=== PATIENT | female | born 1950 | race Caucasian/White ===

== ENCOUNTER 2020-10-19 06:38 | Outpatient (CLI) | payer MEDICARE, SELFPAY ==
--- NOTE | ~2020-10-19 | MR_ITS ---
EXAMINATION: MR lumbar spine wo con DATE: 10/19/2020 07:29 INDICATION: Low back pain. TECHNIQUE: Magnetic resonance imaging (MRI) of the lumbar spine was performed without intravenous con trast. Sequences included sagittal T2-weighted FSE, sagittal T2-weighted FS FSE, sagittal T1-weighted FSE, and axial T2-weighted FSE. COMPARISON: None FINDINGS: Bone alignment is normal. Vertebral body heights and intervertebral disc heights are normal . The distal spinal cord signal intensity is normal. The conus medullaris is at L1. The following dis c levels are specifically discussed: L1-L2: The disc does not extend beyond the endplate margin. There is mild bilateral facet joint osteo arthritis. There is no neural foraminal stenosis. There is no central canal stenosis. L2-L3: The disc is bulging. There is moderate right and mild left facet joint osteoarthritis. There i s mild bilateral neural foraminal stenosis. There is no central canal stenosis. L3-L4: The disc is bulging and has an annular fissure. There is mild bilateral facet joint osteoarthr itis. There is mild right and moderate left neural foraminal stenosis. There is no central canal sten osis. L4-L5: The disc is bulging. There is severe bilateral facet joint osteoarthritis. There is mild bilat eral neural foraminal stenosis. There is mild central canal stenosis. L5-S1: The disc is mildly bulging. There is moderate bilateral facet joint osteoarthritis. There is m ild bilateral neural foraminal stenosis. There is no central canal stenosis. IMPRESSION: 1. Moderate left neural foraminal stenosis at L3-L4. Otherwise mild lumbar spondylosis. Reviewed, dictated and finalized at location B. IMPRESSION: 1. Moderate left neural foraminal stenosis at L3-L4. Otherwise mild lumbar spon dylosis.
== END 2020-10-19 06:39 | disposition home or self-care (01) ==
PROVIDERS: PCP Physician Assistant; Visit Provider Physician Assistant
DX: M47.896 Other spondylosis, lumbar region (principal)
CPT/HCPCS: 72148

== ENCOUNTER 2020-11-05 11:57 | Outpatient (CLI) | payer MEDICARE, SELFPAY ==
--- NOTE | ~2020-11-05 | MM_ITS ---
EXAMINATION: MM diagnostic delmy BI w rolan HISTORY: Left breast lump TECHNIQUE: Bilateral full field ML, MLO and craniocaudal 3-D Tomosynthesis views of both breasts were performed and synthetic 2-D images were generated. Multiple magnification views of left breast. CAD analysis was submitted and interpreted. COMPARISON: 02/29/2008 bilateral digital screening mammogram BREAST PARENCHYMAL COMPOSITION: The breasts are heterogeneously dense, which may obscure small masses . FINDINGS: There are extensive pleomorphic suspicious microcalcifications at the posterior aspect of t he upper outer quadrant of the left breast. There are asymmetric enlarged relatively high density lef t axillary lymph nodes. Findings are suspicious for upper outer quadrant left breast malignancy with metastatic axillary adenopathy. Left breast ultrasound examination is recommended. No suspicious mass, architectural distortion, malignant cascade, skin thickening or retraction of the right breast is evident. IMPRESSION: 1. Suspicious pleomorphic microcalcifications in the posterior upper outer left breast 2. Left breast ultrasound examination is recommended. BI-RADS Category 0: Incomplete: Needs additional imaging evaluation. Reviewed, dictated and finalized at location A.
== END 2020-11-05 11:58 | disposition home or self-care (01) ==
LOC: ANHIMG 11:59
PROVIDERS: PCP Physician Assistant; Visit Provider Physician Assistant
DX: N63.20 Unspecified lump in the left breast, unspecified quadrant (principal); R92.8 Other abnormal and inconclusive findings on diagnostic imaging of breast
CPT/HCPCS: 77062; 77066; G0279

== ENCOUNTER 2020-11-11 12:48 | Outpatient (CLI) | payer MEDICARE, SELFPAY ==
--- NOTE | ~2020-11-11 | US_ITS ---
US breast LT limited 11/11/2020 15:11 Indication: Abnormal mass seen on recent examination. Procedure: High-resolution ultrasound of the left breast Comparison: Mammogram dated 11/05/2020 Findings: At 2:00, 10 cm from the nipple, there is an irregular shaped hypoechoic mass with posterior acoustic shadowing. No significant internal vascularity. This mass measures approximately 3.8 cm max imum dimension. No other masses are identified. Impression: 1: Complex hypoechoic left breast mass at 2:00, 10 cm from the nipple. BI-RADS CATEGORY 4-SUSPICIOUS ABNORMALITY RECOMMENDATION: Ultrasound-guided left breast biopsy recommended. Reviewed, dictated and finalized at location A. Impression: 1: Complex hypoechoic left breast mass at 2:00, 10 cm from the nipple. BI-RADS CATEGORY 4-SUSPICIOUS ABNORMALITY RECOMMENDATION: Ultrasound-guided left breast biopsy recommended.
== END 2020-11-11 12:49 | disposition home or self-care (01) ==
LOC: ANHIMG 12:57
PROVIDERS: PCP Physician Assistant; Visit Provider Physician Assistant
DX: N63.20 Unspecified lump in the left breast, unspecified quadrant (principal); R92.8 Other abnormal and inconclusive findings on diagnostic imaging of breast
CPT/HCPCS: 76642

== ENCOUNTER 2020-11-19 10:01 | Outpatient (CLI) | payer MEDICARE, SELFPAY ==
--- NOTE | ~2020-11-19 | MMUS_ITS ---
EXAMINATION: US GUIDED NEEDLE BIOPSY DATE: 11/19/2020 11:31 CDT INDICATION: Palpable left breast mass at 2:00 10 cm from nipple TECHNIQUE AND FINDINGS: The risks and potential benefits of the procedure were discussed with the patient, and written inform ed consent was obtained. Timeout procedure was performed. After sterile preparation of the left breas t, 1% lidocaine was utilized for local anesthesia. A 14G spring-loaded biopsy gun needle was advanced to the edge of the region of interest from a media l approach utilizing sonographic guidance. A total of three tissue core samples were obtained throug h the lesion. An Inrad tissue marker clip was then placed at the biopsy site. Hemostasis was achieve d. A sterile bandage was applied. The patient tolerated procedure well and there was no evidence of immediate complication. The patien t was given verbal instructions prior to departing from the department. A two view mammogram was perf ormed to document tissue marker clip placement. The tissue samples were submitted to surgical patholo gy for histologic analysis. IMPRESSION: 1. Successful ultrasound guided biopsy of 2:00 left breast mass with biopsy marker placement. Please refer to pathology report for histologic analysis. Reviewed, dictated and finalized at Location A. Reviewed, dictated and finalized at location A. IMPRESSION: 1. Successful ultrasound guided biopsy of 2:00 left breast mass with biopsy ma rker placement. Please refer to pathology report for histologic analysis.
== END 2020-11-19 10:02 | disposition home or self-care (01) ==
PROVIDERS: PCP Physician Assistant; Visit Provider Physician Assistant
DX: R92.8 Other abnormal and inconclusive findings on diagnostic imaging of breast (principal); C50.912 Malignant neoplasm of unspecified site of left female breast
CPT/HCPCS: 19083; 88305; 88360

== ENCOUNTER 2020-12-17 22:20 | Observation (INO) | payer MEDICARE, SELFPAY ==
--- NOTE | ~2020-12-17 | CT_ITS ---
EXAMINATION: CT cervical spine wo con DATE: 12/17/2020 23:31 INDICATION: Neck pain. Breast cancer. TECHNIQUE: Computed tomography (CT) of the cervical spine was performed without intravenous contrast. The dose-length product was 311.72 mGy-cm. Automated exposure control and iterative reconstruction t echnique were employed. COMPARISON: No prior studies for comparison. FINDINGS: There are extensive lytic lesions of C2, C4, C5 and C6. There are also lytic lesions of the right T2 and T4 transverse process as well as the associated right second and fourth ribs. There is cortical disruption of the odontoid process, likely pathologic fracture, nondisplaced. Craniovertebra l junction is unremarkable. There is a soft tissue component extending outside of the C2 vertebra ext ending into the left neural foramen. IMPRESSION: 1. 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 Probable nondisplaced pathologic fracture of the od ontoid process. Reviewed, dictated and finalized at location A. IMPRESSION: 1. Osseous metastases to multiple cervical and thoracic vertebra as well as the right second and fourth ribs, likely secondary to known breast cancer. Probabl e nondisplaced pathologic fracture of the odontoid process.
[2020-12-17 22:20] VITALS: BP 155/69; PULSE 100; RESP 16; TEMP 37; O2SAT 94
--- NOTE | 2020-12-17 23:10 | ED.NECK ---
HPI - Neck Pain/Injury General Chief Complaint: Neck Pain/Injury Stated Complaint: neck and shoulder pain since sunday Time Seen by Provider: 12/17/20 22:35 Source: RN notes reviewed History of Present Illness HPI Narrative: Patient presents to the emergency department from home via EMS for left-sided neck pain. Patient states that she awoke with left-sided neck pain approximately 5 days ago. States that since that time she has had intermittent pain and spasm in the left lateral neck into the left shoulder she denies any acute trauma or injury but states she awoke with it she has Flexeril that she got from her PCP and states that approximately 45 minutes ago that spasming became worse she took a Flexeril and ibuprofen at home with no relief she denies any fevers or chills, chest pain, shortness of breath or any other symptoms Related Data Home Medications Medication Instructions Recorded Confirmed aspirin 81 mg tablet,delayed 81 mg PO DAILY 01/02/20 11/24/20 release magnesium 30 mg tablet 30 mg PO DAILY 01/02/20 multivitamin 1 tablet PO DAILY 01/02/20 11/24/20 omega-3 fatty acids 1,000 mg 1,000 mg PO DAILY 01/02/20 11/24/20 capsule coenzyme Q10 10 mg capsule 10 mg PO ONCE 02/06/20 11/24/20 cholecalciferol (vitamin D3) 125 125 mcg PO DAILY 10/12/20 11/24/20 mcg (5,000 unit) capsule tumeric 100 mg-solis 150 mg-olive cap PO 11/24/20 11/24/20 50 mg-oreg 150 mg-caprylate capsule vitamin B complex 1 tablet PO DAILY 11/24/20 11/24/20 Allergies Allergy/AdvReac Type Severity Reaction Status Date / Time doxycycline Allergy Intermediate unknown Verified 12/17/20 22:26 sulfamethoxazole Allergy Intermediate Hives / Verified 12/17/20 22:26 Red Face levofloxacin Allergy Unknown unkown Verified 12/17/20 22:26 Sulfa (Sulfonamide Allergy Unknown unknown Verified 12/17/20 22:26 Antibiotics) sulfamethizole Allergy Unknown Unknown Verified 12/17/20 22:26 tetracycline Allergy Unknown unknown Verified 12/17/20 22:26 Tetracyclines Allergy Unknown unknown Verified 12/17/20 22:26 trimethoprim Allergy Unknown unknown Verified 12/17/20 22:26 Review of Systems Review of Systems: Narrative: Gen.: Denies fevers or chills ENT: Denies congestion Respiratory: Denies shortness of breath or cough CV: Denies chest pain or palpitations GI: Denies abdominal pain nausea, emesis or diarrhea Musculoskeletal: See HPI Neuro: Denies numbness, tingling, weakness or focal weakness Skin: Denies rash Except as documented, all other systems reviewed and negative [facility] Past Medical History Medical History (Updated 12/18/20 @ 01:53 by Jaswant Wilson DO) Lumbar radiculopathy Family History Family History Mother Hypertension Family history of diabetes mellitus in first degree relative Family history of Alzheimer's disease Father Family history of lung cancer Patient's father is Sibling Family history of malignant neoplasm of breast in first degree relative Patient's sister is Social History Social History Smoking status: Never smoker Second hand tobacco smoke exposure: No Alcohol intake: never Exam Narrative: Exam Narrative: APPEARANCE: No acute distress, nontoxic, resting in bed EYES: EOMI HEENT: Normocephalic, atraumatic, OMM Neck: Supple no midline tenderness palpation tender palpation over left paravertebral muscle C4-7 and left trapezius with muscle spasm palpated pain with rotation of the neck bilaterally greater than 30 degrees RESPIRATORY: No respiratory distress Clear to auscultation bilaterally with no rhonchi wheezing or rales. CARDIOVASCULAR: Regular rate and rhythm without murmurs rubs or gallops. ABDOMINAL: Soft, nontender, nondistended, no rebound or guarding MUSCULOSKELETAl: Moves all extremities. No clubbing, cyanosis or edema. No tenderness of the left shoulder elbow or wrist
[2020-12-17] MEDS: diazePAM (*CRX) 5 MG TABLET PO (23:21)
[2020-12-18] VITALS (7 sets, daily range): BP systolic 111–152; BP diastolic 60–83; PULSE 83–98; RESP 16–20; TEMP 36.4–36.6; O2SAT 93–97; BMI 32.0
--- NOTE | 2020-12-18 | ECG_ITS ---
Measurements Intervals [place] Rate: 94 P: 41 CO: 157 QRS: -24 QRSD: 83 T: 31 QT: 336 QTc: 421 Interpretive Statements SINUS RHYTHM LEFT VENTRICULAR HYPERTROPHY POOR R WAVE PROGRESSION, ANTERIOR LEADS BASELINE ARTIFACT- V6 BORDERLINE ECG Electronically Signed On 12-18-2020 6:48:24 CDT by Wan Maurer D.O.
--- NOTE | 2020-12-18 | PC.NURSE ---
C-Collar placed on pt at ED MD verbal order. pt tolerated well.
--- NOTE | 2020-12-18 00:52 | PC.NURSE ---
This RN spoke with [facility] transfer center. She hopes to have a bed in oncology open after discharges tomorrow. Per [facility] policy, they require a negative covid swab for bed placement. Rapid Covid swab obtained as ordered and walked to lab. will call and update them with result.
[2020-12-18 00:58] LABS: Alanine Aminotransferase 20 U/L (4-35); Albumin Level 4.4 g/dL (3.5-5.1); Alkaline Phosphatase 481 U/L (38-126); Anion Gap 9 mmol/L (8-16); Aspartate Amino Transferase 79 U/L (14-36); Bilirubin,Total 0.4 mg/dL (0.2-1.3); Blood Urea Nitrogen 12 mg/dL (7-17); Carbon Dioxide 27 mmol/L (22-30); Chloride 100 mmol/L (98-107); Estimated CRCL calculation 71 ml/min; Estimated Glomerular Filt Rate > 60; Glucose 126 mg/dL (65-105); Potassium 3.9 mmol/L (3.4-5.0); Sodium 136 mmol/L (137-145)
[2020-12-18 00:59] LABS: Basophils Absolute Auto 0.1 K/mm3 (0.0-0.1); Basophils Percent Auto 0.4 % (0.2-1.2); Eosinophils Absolute Auto 0.3 K/mm3 (0-0.3); Eosinophils Percent Auto 2.1 % (0-4.4); Hematocrit 38.3 % (37.0-47.0); Hemoglobin 12.4 g/dL (12.0-15.0); Immature Granulocyte Absolute 0.07 K/mm3 (0.00-0.031); Immature Granulocyte Percent A 0.6 % (0-0.5); Lymphocytes Absolute Auto 1.96 K/mm3 (0.9-3.2); Lymphocytes Percent Auto 16.7 % (18.3-44.2); Mean Corpuscular HGB Conc 32.4 g/dl (32-36); Mean Corpuscular Hemoglobin 30.8 pg (26-34); Mean Corpuscular Volume 95.3 fl (80-100); Mean Platelet Volume 11.1 fl (7.4-10.4); Monocytes Absolute Auto 0.7 K/mm3 (0.1-0.6); Monocytes Percent Auto 6.1 % (2.6-8.5); Neutrophils Absolute Auto 8.7 K/mm3 (1.3-6.7); Neutrophils Percent Auto 74.1 % (45.5-73.1); Platelet Count Result 236 k/mm3 (150-375); Red Blood Count 4.02 M/mm3 (4.2-5.4); Red Cell Distribution Width 13.1 % (11.5-14.5); White Blood Count 11.8 K/mm3 (4.5-10.0)
[2020-12-18 01:03] LABS: INR 0.9; Partial Thromboplastin Time 25.2 SECONDS (22.3-36.8); Prothrombin Time 11.9 Seconds (11.1-14.7)
[2020-12-18] MEDS: HYDROcodone/acetaminophen (*CRX) 5-325 MG TABLET 1 TAB PO ×4 (01:57→19:20)
--- NOTE | 2020-12-18 02:00 | PC.NURSE ---
Covid swab NEGATIVE. Per Immanuel, ED admin secretary, [place] transfer line updated that pt's covid swab negative.
--- NOTE | 2020-12-18 02:44 | PC.NURSE ---
Pt to ROOM [facility] on [facility] eligibility technician.
[2020-12-18] MEDS: HYDROmorphone HCL INJ (*CRX) 1 MG/ML SYR IV PUSH ×3 (03:36→17:28)
--- NOTE | 2020-12-18 03:42 | PC.NURSE ---
This patient, Myrna Rodriguez, was admitted to [facility] Surg Room 306-01. Patient/family oriented to hospital policies and general routines including ID bracelet, bed and alarms, visiting hours, pain management, procedures, bathroom and other care routines, personal items, smoking policy, room service/diet, and visiting hours. Information on how to activate the Rapid Response Team has been discussed. Patient/Family are encouraged to report perceived risks to care and to ask questions if they do not understand what they are told or what they should do.
--- NOTE | 2020-12-18 09:30 | PM.IMHP ---
H&P: HPI History of Present Illness Date/Time: 12/18/20 09:30 Chief Complaint: left-sided neck pain Narrative: this 70-year-old female who was diagnosed with invasive T2 N2 Mx ductal breast cancer in November 2020 and has yet to initiate therapy was awakened with severe left posterolateral neck pain on December 12. She had to call the corner cutter to get out of bed. Pain continued to worsen radiated to her left shoulder. No weakness or numbness in the arm or leg. No difficulty swallowing. No dizziness syncope or presyncope. Because of worsening pain she presented to the emergency room last evening. CT scan revealed pathological fracture of the odontoid process. Her breast surgeon and oncologist are both at [place]. There were no beds available there until this afternoon. Therefore she was admitted for pain management and observation while awaiting a bed at [place]. She has pain only when she moves her neck. She is currently wearing a hard collar. She has no bowel or bladder issues. In fact bowels moved this morning. She denied chest pain shortness of breath palpitations syncope presyncope constipation diarrhea dysuria hematuria hematochezia abdominal pain nausea or vomiting. Review of Systems Review of Systems: All systems reviewed & are unremarkable except as noted in HPI and below PMFSH Past Medical History Medical History Lumbar radiculopathy Family History Family History Mother Hypertension Family history of diabetes mellitus in first degree relative Family history of Alzheimer's disease Father Family history of lung cancer Patient's father is Sibling Family history of malignant neoplasm of breast in first degree relative Patient's sister is Social History Social History Smoking status: Never smoker Second hand tobacco smoke exposure: Yes (father was a smoker) Alcohol intake: never Substance use: never Gender identity (if verbalized by the patient): Female Spiritual care concerns: No Meds Home Medications and Allergies Home Medications Medication Instructions Recorded Confirmed Type aspirin 81 mg tablet,delayed 81 mg PO DAILY 01/02/20 12/18/20 History release multivitamin 1 tablet PO DAILY 01/02/20 12/18/20 History omega-3 fatty acids 1,000 mg 1,000 mg PO DAILY 01/02/20 12/18/20 History capsule coenzyme Q10 10 mg capsule 10 mg PO DAILY 02/06/20 12/18/20 History cholecalciferol (vitamin D3) 125 125 mcg PO DAILY 10/12/20 12/18/20 History mcg (5,000 unit) capsule cyclobenzaprine 10 mg tablet 10 mg PO TID PRN #30 tablet 10/12/20 12/18/20 Rx tumeric 100 mg-solis 150 mg-olive 1 cap PO DAILY 11/24/20 12/18/20 History 50 mg-oreg 150 mg-caprylate capsule vitamin B complex 1 tablet PO DAILY 11/24/20 12/18/20 History Allergies Allergy/AdvReac Type Severity Reaction Status Date / Time doxycycline Allergy Intermediate Hives Verified 12/18/20 04:03 sulfamethoxazole Allergy Intermediate Hives / Verified 12/17/20 22:26 Red Face levofloxacin Allergy Unknown muscle Verified 12/18/20 04:01 aches Sulfa (Sulfonamide Allergy Unknown Hives Verified 12/18/20 04:01 Antibiotics) sulfamethizole Allergy Unknown Hives Verified 12/18/20 04:03 tetracycline Allergy Unknown Hives Verified 12/18/20 04:03 Tetracyclines Allergy Unknown Hives Verified 12/18/20 04:03 trimethoprim Allergy Unknown Hives Verified 12/18/20 04:03 Vital Signs Vital Signs - 24 hr 12/17/20 22:20 12/18/20 00:50 12/18/20 02:10 Temperature 98.6 F Pulse Rate 100 98 94 Respiratory Rate 16 16 20 Blood Pressure 155/69 H 111/70 142/60 H Pulse Oximetry 94 97 96 12/18/20 02:37 12/18/20 02:50 12/18/20 06:00 Temperature 97.6 F 97.9 F Pulse Rate 98 96 91 Respiratory Rate 18 20 20 Blood Pressure 135/83 150/63 H 152/69 H Pulse Oximetry
[2020-12-18] MEDS: ONDANSETRON INJ 4 MG/2 ML VIAL IV PUSH (19:48)
--- NOTE | 2020-12-28 13:49 | PM.TDS ---
Transfer Discharge Sum: Prov Provider Date of admission: 12/18/20 01:49 Primary care physician: Hill Hernandes PA-C Admitting clinician: Azucena Mullins MD DS: Admitting Diagnosis Admitting Diagnosis Admitting Diagnosis: odontoid fracture DS: Discharge Diagnosis Discharge Diagnosis (1) Odontoid fracture: Qualifiers: Encounter type: subsequent encounter Fracture healing: with delayed healing Fracture type: closed Qualified Code(s): S12.100G - Unspecified displaced fracture of second cervical vertebra, subsequent encounter for fracture with delayed healing Code(s): S12.110A - Anterior displaced Type II dens fracture, initial encounter for closed fracture Status: Acute Assessment and Plan: continue in hard collar analgesics as needed await better at [place] for this afternoon for consultation with neurosurgery and f/u with oncology see (2) Metastatic cancer to spine: Code(s): C79.51 - Secondary malignant neoplasm of bone Status: Acute Assessment and Plan: analgesics while awaiting definitive therapy (3) Breast cancer: Qualifiers: Breast location: upper outer quadrant of breast Estrogen receptor status: negative Laterality: right Patient sex: female Qualified Code(s): C50.411 - Malignant neoplasm of upper-outer quadrant of right female breast; Z17.1 - Estrogen receptor negative status [ER-] Code(s): C50.919 - Malignant neoplasm of unspecified site of unspecified female breast Status: Acute Assessment and Plan: estrogen receptor negative, progesterone receptor negative, HER2 positive (4) Lumbar radiculopathy: Code(s): M54.16 - Radiculopathy, lumbar region Status: Acute Transfer Discharge Sum: Med Medications Active and Home Medications: Home Medications aspirin 81 mg tablet,delayed release 81 mg PO DAILY 01/02/20 [History Confirmed 12/18/20] multivitamin 1 tablet PO DAILY 01/02/20 [History Confirmed 12/18/20] omega-3 fatty acids 1,000 mg capsule 1,000 mg PO DAILY 01/02/20 [History Confirmed 12/18/20] coenzyme Q10 10 mg capsule 10 mg PO DAILY 02/06/20 [History Confirmed 12/18/20] cholecalciferol (vitamin D3) 125 mcg (5,000 unit) capsule 125 mcg PO DAILY 10/12/20 [History Confirmed 12/18/20] cyclobenzaprine 10 mg tablet 10 mg PO TID PRN #30 tablet 10/12/20 [Rx Confirmed 12/18/20] tumeric 100 mg-solis 150 mg-olive 50 mg-oreg 150 mg-caprylate capsule 1 cap PO DAILY 11/24/20 [History Confirmed 12/18/20] vitamin B complex 1 tablet PO DAILY 11/24/20 [History Confirmed 12/18/20] Transfer Discharge Sum: Hosp Hospital Course Hospital course: Myrna Rodriguez is a 70 year old female who was diagnosed with invasive T2 N2 Mx ductal breast cancer in November 2020 and has yet to initiate therapy was awakened with severe left posterolateral neck pain on December 12. She had to call the creative services writer to get out of bed. Pain continued to worsen radiated to her left shoulder. No weakness or numbness in the arm or leg. No difficulty swallowing. No dizziness syncope or presyncope. Because of worsening pain she presented to the emergency room last evening. CT scan revealed pathological fracture of the odontoid process. Her breast surgeon and oncologist are both at [place]. There were no beds available there until this afternoon. Therefore she was admitted for pain management and observation while awaiting a bed at [facility]. She has pain only when she moves her neck. She is currently wearing a hard collar. She has no bowel or bladder issues. In fact bowels moved on this morning. She was maintained in a hard collar with fall precautions and given prn analgesics until she could be transferred to [place] for further evaluation and definitive treatment of her pathological odontoid fracture. Time Spent with Patient Time attestation: Total time spent providing and/or coordinating transfer services: Total time spent: Less than 30 minutes Exam Leonardo
== END 2020-12-18 19:50 | disposition short-term general hospital (02) ==
LOC: ANHED 12-18 01:53 → ANH3MEDSUR 12-21 09:37
PROVIDERS: Admitting Provider Internal Medicine; Emergency Provider Emergency Medicine; PCP Physician Assistant; Visit Provider Internal Medicine
DX: M84.58XA Pathological fracture in neoplastic disease, other specified site, initial encounter for fracture (principal); C50.411 Malignant neoplasm of upper-outer quadrant of right female breast; C79.51 Secondary malignant neoplasm of bone; M54.16 Radiculopathy, lumbar region; Z17.1 Estrogen receptor negative status [ER-]; Z20.822 Contact with and (suspected) exposure to COVID-19; Z79.82 Long term (current) use of aspirin
CPT/HCPCS: 36415; 72125; 80053; 85025; 85610; 85730; 87426; 93005; 96374; 96375; 96376; 99285; A9270; C9803; G0378; J1170; J2405; L0140

== ENCOUNTER 2021-05-12 10:03 | Outpatient (CLI) | payer MEDICARE, SELFPAY ==
[2021-05-12 11:28] LABS: Add Urine Microscopic? YES; Appearance Urine Cloudy (Clear); Bilirubin Urine Negative (Negative); Blood Urine 1+ (Negative); Color Urine Amber (Yellow); Glucose Urine UA Negative (Negative); Ketones Urine Negative (Negative); Leukocyte Esterase Ur 2+ LEU/UL (NEGATIVE); Mucus Urine Heavy /lpf; Nitrate Urine Negative (Negative); Protein Urine 2+ mg/dL (Negative); RBC Urine 21-50 /hpf (0-2); Squamous Epithelial Cell Urine Occasional /hpf (Few); Urobilinogen Urine Negative mg/dL (<2.0); WBC Urine >75 /hpf (0-3)
[2021-05-12 11:37] LABS: Specific Grav Ur 1.032 (1.001-1.035)
== END 2021-05-12 10:04 | disposition home or self-care (01) ==
LOC: ANHLAB 10:07
PROVIDERS: PCP Physician Assistant; Visit Provider Physician Assistant
DX: R30.0 Dysuria (principal)
CPT/HCPCS: 81001; 87086; 87147; 87181; 87186

== ENCOUNTER 2021-05-30 12:29 | Outpatient (CLI) | payer MEDICARE, SELFPAY ==
[2021-05-30 14:26] LABS: Add Urine Microscopic? YES; Appearance Urine Cloudy (Clear); Bacteria Urine 3+ /hpf; Bilirubin Urine Negative (Negative); Blood Urine 1+ (Negative); Color Urine Amber (Yellow); Glucose Urine UA Negative (Negative); Ketones Urine Negative (Negative); Leukocyte Esterase Ur 1+ LEU/UL (NEGATIVE); Mucus Urine Heavy /lpf; Nitrate Urine Positive (Negative); Protein Urine 2+ mg/dL (Negative); Specific Grav Ur 1.019 (1.001-1.035); Squamous Epithelial Cell Urine Few /hpf (Few); WBC Urine 51-75 /hpf (0-3)
== END 2021-05-30 12:30 | disposition home or self-care (01) ==
PROVIDERS: PCP Physician Assistant; Visit Provider Physician Assistant
DX: R30.0 Dysuria (principal)
CPT/HCPCS: 81001; 87077; 87086; 87186

== ENCOUNTER 2022-03-09 12:06 | Outpatient (CLI) | payer MEDICARE, SELFPAY ==
[2022-03-09 12:51] LABS: Appearance Urine Slightly Cloudy (Clear); Bilirubin Urine 1+ (Negative); Blood Urine Trace-intact (Negative); Color Urine Yellow (Yellow); Glucose Urine UA Negative (Negative); Ketones Urine Trace mg/dL (Negative); Leukocyte Esterase Ur 2+ LEU/UL (NEGATIVE); Nitrate Urine Negative (Negative); Protein Urine 1+ mg/dL (Negative); Specific Grav Ur 1.025 (1.001-1.035); Urobilinogen Urine 0.2 mg/dL (<2.0); pH Urine 5.5 (5.0-9.0)
[2022-03-09 12:58] LABS: Bacteria Urine 1+ /hpf; Mucus Urine Few /lpf; Squamous Epithelial Cell Urine Rare /hpf (Few); WBC Urine >75 /hpf (0-3)
[2022-03-09 12:59] LABS: Add Urine Microscopic? YES
== END 2022-03-09 12:07 | disposition home or self-care (01) ==
LOC: ANHLAB 12:15
PROVIDERS: PCP Physician Assistant; Visit Provider Physician Assistant
DX: R30.0 Dysuria (principal)
CPT/HCPCS: 81001; 87086; 87147; 87181; 87186

== ENCOUNTER 2022-06-30 14:51 | Inpatient (IN) | payer MEDICARE, SELFPAY ==
[2022-06-30] VITALS (15 sets, daily range): BP systolic 123–140; BP diastolic 38–63; PULSE 90–130; RESP 18–24; TEMP 36.4–36.9; O2SAT 94–100; BMI 23.8
--- NOTE | ~2022-06-30 | CT_ITS ---
EXAMINATION: CT brain wo con DATE: 06/30/2022 15:05 INDICATION: Seizures. TECHNIQUE: Computed tomography (CT) of the head was performed without intravenous contrast. Sagittal and coronal reconstructions were performed. Automated exposure control and iterative reconstruction t echnique were employed. The dose-length product was 1210.67 mGy-cm. COMPARISON: None FINDINGS: Moderate-sized region of vasogenic edema in the left frontal lobe with localized enlargement of the s ulci is and asymmetric mild decreased size of the body and anterior horn of the left ventricle. Ventr icles are otherwise normal. No subfalcine or uncal herniation. This raises concern for underlying mal ignancy although no discrete underlying mass is identified. No acute intracranial hemorrhage, acute i nfarction or abnormal extra axial fluid collection. The orbits, paranasal sinuses and mastoid air tejal ls are normal. There is some bone graft material associated with partially visualized internal fixati on instrumentation for an occipital cervical posterior spinal fusion likely for stabilization of righ t appears be lytic osseous metastatic disease on prior cervical spine CT dated 12/27/2020. IMPRESSION: 1. Moderate-sized region of vasogenic edema in the left frontal lobe concerning for metastatic diseas e likely secondary to known breast cancer. Consider further evaluation with pre and postcontrast MRI or CT. Reviewed, dictated and finalized at location A. HEALTH CAREGIVER IMPRESSION: 1. Moderate-sized region of vasogenic edema in the left frontal lobe concerning for metastatic disease likely secondary to known breast cancer. Consider furth er evaluation with pre and postcontrast MRI or CT.
--- NOTE | ~2022-06-30 | XR_ITS ---
EXAMINATION: XR chest 1V portable DATE: 06/30/2022 15:17 INDICATION: Seizure-like activity with unresponsive episode. TECHNIQUE: frontal view of the chest was obtained. COMPARISON: Chest radiograph dated 01/20/2016 FINDINGS: No focal airspace opacities, pulmonary edema, pleural effusion or pneumothorax. The cardiomediastinal silhouette is normal. Status post right mastectomy and right subclavian central venous port catheter placement with distal tip near the superior cavoatrial junction. Cholecystectomy clips in right upper quadrant. Partially v isualized bilateral vertical rods and pedicle screws at a few levels at the upper thoracic spine. Age indeterminate minimally displaced fracture of the left posterolateral eighth rib. IMPRESSION: 1. No acute cardiopulmonary disease. Reviewed, dictated and finalized at location A. TING MACHINE OPERATOR
[2022-06-30] MEDS: LORazepam INJ (*CRX) 2 MG/ML VIAL IV PUSH (14:51)
--- NOTE | 2022-06-30 14:54 | ECG_ITS ---
Measurements Intervals [place] Rate: 154 P: 85 [place]: 118 QRS: -66 QRSD: 84 T: 80 QT: 279 QTc: 447 Interpretive Statements SINUS OR ECTOPIC ATRIAL TACHYCARDIA LEFT ANTERIOR FASCICULAR BLOCK BORDERLINE ST-T WAVE ABNORMALITY- DIFFUSE LEADS BASELINE ARTIFACT- I, II, III, AVR, AVL, AVF, V1 ABNORMAL ECG COMPARED TO ECG 12/18/2020 00:29:49 SINUS OR ECTOPIC ATRIAL TACHYCARDIA NOW PRESENT LEFT ANTERIOR FASCICULAR BLOCK NOW PRESENT ST-T WAVE ABNORMALITY NOW PRESENT Electronically Signed On 06-30-2022 15:13:11 PRETZEL TWISTER by Wan Maurer D.O.
--- NOTE | 2022-06-30 14:56 | ED.SEIZURE ---
HPI - Seizure General Chief Complaint: Seizure Stated Complaint: seizure ? Time Seen by Provider: 06/30/22 14:53 History of Present Illness HPI Narrative: Patient is a 71-year-old female presenting with seizures. I was called to her room upon arrival due to the patient actively seizing. She had a rightward gaze with generalized tonic-clonic activity. Patient given 2 mg Ativan with resolution of the seizure. She continues to saturate 100%. She was placed on a nonrebreather. Further history is limited due to clinical condition. I did speak with the patient's on her arrival. He states that this episode started approximately 10 to 20 minutes prior to their arrival. States that over the last month she has had some word finding difficulties but otherwise denies other problems. Reports that she has a history of breast cancer but states that she no longer takes any medications. Related Data Home Medications Medication Instructions Recorded Confirmed aspirin 81 mg tablet,delayed 81 mg PO DAILY 01/02/20 12/18/20 release (Adult Low Dose Aspirin) multivitamin (Multiple Vitamins 1 tablet PO DAILY 01/02/20 12/18/20 tablet) omega-3 fatty acids 1,000 mg 1,000 mg PO DAILY 01/02/20 12/18/20 capsule (Fish Oil Concentrate) coenzyme Q10 10 mg capsule 10 mg PO DAILY 02/06/20 12/18/20 cholecalciferol (vitamin D3) 125 125 mcg PO DAILY 10/12/20 12/18/20 mcg (5,000 unit) capsule tumeric 100 mg-solis 150 mg-olive 1 cap PO DAILY 11/24/20 12/18/20 50 mg-oreg 150 mg-caprylate capsule vitamin B complex (B 1 tablet PO DAILY 11/24/20 12/18/20 Complex-Vitamin B12 tablet) Allergies Allergy/AdvReac Type Severity Reaction Status Date / Time doxycycline Allergy Intermediate Hives Verified 12/18/20 04:03 sulfamethoxazole Allergy Intermediate Hives / Verified 12/17/20 22:26 Red Face levofloxacin Allergy Unknown muscle Verified 12/18/20 04:01 aches Sulfa (Sulfonamide Allergy Unknown Hives Verified 12/18/20 04:01 Antibiotics) sulfamethizole Allergy Unknown Hives Verified 12/18/20 04:03 tetracycline Allergy Unknown Hives Verified 12/18/20 04:03 Tetracyclines Allergy Unknown Hives Verified 12/18/20 04:03 trimethoprim Allergy Unknown Hives Verified 12/18/20 04:03 Review of Systems Review of Systems: ROS unobtainable: Yes unobtainable due to mental status PMFSH Past Medical History Medical History Lumbar radiculopathy Family History Family History Mother Hypertension Family history of diabetes mellitus in first degree relative Family history of Alzheimer's disease Father Family history of lung cancer Patient's father is Sibling Family history of malignant neoplasm of breast in first degree relative Patient's sister is Social History Social History Smoking status: Never smoker Second hand tobacco smoke exposure: Yes (father was a smoker) Alcohol intake: never Substance use: never Gender identity (if verbalized by the patient): Female Spiritual care concerns: No Exam Narrative: GENERAL: Patient actively seizing HEAD: Normocephalic, atraumatic. EYES: Rightward gaze deviation ENT: Nares clear, no rhinorrhea or epistaxis. Mucous membranes moist. NECK: Supple. CHEST: Diminished, crackles bilaterally HEART: Tachycardic, regular rhythm ABDOMEN: Soft, nontender EXTREMITIES: No edema. SKIN: Warm, dry, no rash. NEURO: Unresponsive, generalized tonic-clonic seizing Course Vital Signs Vital signs: Vital Signs Pulse Rate 130 H 06/30/22 14:52 Respiratory Rate 18 06/30/22 14:52 Pulse Oximetry 100 06/30/22 14:52 Oxygen Delivery Room Air 06/30/22 14:52 Pulse Rate 130 H 06/30/22 14:52 Respiratory Rate 18 06/30/22 14:52 Pulse Oximetry 100 06/30/22 14:52 Oxygen Delivery Room Air
[2022-06-30] MEDS: levETIRAcetam 1000MG/NACL100ML 1,000 MG/100 ML BAG 400 MG IVPB (15:20)
[2022-06-30] MEDS: SODIUM CHLORIDE 0.9% IV 1,000 ML 999 ML IV CONT (15:20)
[2022-06-30 15:26] LABS: Basophils Absolute Auto 0.1 K/mm3 (0.0-0.1); Eosinophils Absolute Auto 0.2 K/mm3 (0-0.3); Eosinophils Percent Auto 1.9 % (0-4.4); Hematocrit 42.5 % (37.0-47.0); Hemoglobin 13.9 g/dL (12.0-15.0); Immature Granulocyte Absolute 0.13 K/mm3 (0.00-0.031); Immature Granulocyte Percent A 1.2 % (0-0.5); Lymphocytes Absolute Auto 3.92 K/mm3 (0.9-3.2); Lymphocytes Percent Auto 37.7 % (18.3-44.2); Mean Corpuscular HGB Conc 32.7 g/dl (32-36); Mean Corpuscular Hemoglobin 31.2 pg (26-34); Mean Corpuscular Volume 95.3 fl (80-100); Mean Platelet Volume 10.4 fl (7.4-10.4); Monocytes Absolute Auto 0.8 K/mm3 (0.1-0.6); Monocytes Percent Auto 7.4 % (2.6-8.5); Neutrophils Absolute Auto 5.3 K/mm3 (1.3-6.7); Neutrophils Percent Auto 50.8 % (45.5-73.1); Platelet Count Result 295 k/mm3 (150-375); Red Blood Count 4.46 M/mm3 (4.2-5.4); Red Cell Distribution Width 12.2 % (11.5-14.5); White Blood Count 10.4 K/mm3 (4.5-10.0)
[2022-06-30 15:33] LABS: INR 0.9; Prothrombin Time 11.7 Seconds (11.1-14.7)
[2022-06-30 15:34] LABS: Alanine Aminotransferase 22 U/L (6-35); Albumin Level 4.1 g/dL (3.5-5.1); Alkaline Phosphatase 106 U/L (38-126); Anion Gap 10 mmol/L (8-16); Aspartate Amino Transferase 32 U/L (14-36); Bilirubin,Total 0.5 mg/dL (0.2-1.3); Blood Urea Nitrogen 9 mg/dL (7-17); Calcium 9.6 mg/dL (8.4-10.2); Carbon Dioxide 28 mmol/L (22-30); Chloride 103 mmol/L (98-107); Estimated CRCL calculation 69 ml/min; Estimated Glomerular Filt Rate > 60; Glucose 101 mg/dL (65-110); Partial Thromboplastin Time 25.2 SECONDS (22.3-36.8); Potassium 4.1 mmol/L (3.4-5.0); Sodium 141 mmol/L (137-145)
[2022-06-30 15:35] LABS: Glucose Point of Care 122 mg/dl (65-105)
[2022-06-30 15:39] LABS: Appearance Urine Clear (Clear); Bilirubin Urine Negative (Negative); Blood Urine Negative (Negative); Color Urine Yellow (Yellow); Glucose Urine UA Negative (Negative); Ketones Urine Negative (Negative); Leukocyte Esterase Ur Negative LEU/UL (Negative); Nitrate Urine Negative (Negative); Protein Urine 2+ mg/dL (Negative); Specific Grav Ur >= 1.030 (1.001-1.035); Urobilinogen Urine 0.2 mg/dL (<2.0)
[2022-06-30 15:46] LABS: Lactic Acid Reflex 10.3 mmol/L (0.7-2.0)
[2022-06-30 15:46] LABS: Troponin I < 0.012 ng/mL (0.000-0.034)
[2022-06-30 15:54] LABS: Bacteria Urine Trace /hpf; RBC Urine 0-2 /hpf (0-2); Squamous Epithelial Cell Urine Rare /hpf (Few); WBC Urine 0-3 /hpf
[2022-06-30 15:57] LABS: Add Urine Microscopic? YES
[2022-06-30 16:03] LABS: Ethanol < 10 mg/dL (<10)
[2022-06-30 16:28] LABS: Amphetamine Screen Urine Negative (Negative); Barbiturate Screen Urine Negative (Negative); Benzodiazepines Screen Urine Negative (Negative); Cannabinoid Screen Urine Negative (Negative); Cocaine Screen Urine Negative (Negative); Methadone Screen Urine Negative (Negative); Opiate Screen Urine Negative (Negative); Phencyclidine Screen Urine Negative (Negative)
--- NOTE | 2022-06-30 17:05 | PM.IMHP ---
H&P: HPI History of Present Illness Date/Time: 06/30/22 17:05 Chief Complaint: Altered mental status. Narrative: This is a very pleasant 71-year-old female who presented to the emergency department via private vehicle accompanied by her and son for evaluation of altered mental status. The following history is obtained from the patient as well as her son and who are at bedside, with the patient's permission. She was diagnosed with invasive ductal breast cancer in November 2020 and she quit treatment in spring due to side effects. She has been getting along pretty well since that time however over the past 1 month she has been having some difficulties with word finding and articulation. Yesterday she had a good day and was out shopping with her sister. This morning she seemed to be doing pretty good as well however not long prior to arrival while on the phone she called out for her as her hands were moving uncontrollably. She thought she should come to the ER for evaluation and in the car she became increasingly altered and was actively seizing when they arrived. According to the ED physician note the patient had a rightward gaze with generalized tonic clonic activity on her exam. Ativan 2 mg was given with resolution of seizure. She was postictal thereafter however within an hour she has become alert and oriented x4. Brain CT today showed a moderate-size region of vasogenic edema in the left frontal lobe concerning for metastatic disease. This was discussed with the patient and her family members and the declined transfer to tertiary care facility; she has opted for palliative care and intends on meeting with [facility] tomorrow. She has been started on levetiracetam and dexamethasone and she is being admitted for monitoring and supportive care tonight. She has no current complaints and denies headache, visual changes, focal weakness, paresthesias, facial droop, and difficulty swallowing. Review of Systems Review of Systems: Twelve systems were reviewed and are negative except for as per HPI. [facility] Past Medical History Medical History (Updated 07/02/22 @ 23:57 by Linda Fisher PA-C) Breast cancer Lumbar radiculopathy Surgical History Surgical History (Updated 07/02/22 @ 23:57 by Linda Fisher PA-C) History of appendectomy History of cholecystectomy History of tonsillectomy History of tubal ligation Family History Family History Mother Hypertension Family history of diabetes mellitus in first degree relative Family history of Alzheimer's disease Father Family history of lung cancer Patient's father is Sibling Family history of malignant neoplasm of breast in first degree relative Patient's sister is Social History Social History Smoking status: Never smoker Second hand tobacco smoke exposure: Yes (father was a smoker) Alcohol intake: never Substance use: never Lack of Transportation: No Lack of Food: Never True Current Housing: I Have Housing Concerned About Future Housing: No Difficulty Paying Gas/Electric Bills: No Difficulty Paying for Meds: No Currently Unemployed: No Education: High School Diploma/GED Difficulty w/ Childcare or Family Care: No Gender identity (if verbalized by the patient): Female Spiritual care concerns: No Meds Home Medications and Allergies Home Medications Medication Instructions Recorded Confirmed Type No Home Medications 06/30/22 06/30/22 History Allergies Allergy/AdvReac Type Severity Reaction Status Date / Time doxycycline Allergy Intermediate Hives Verified 06/30/22 19:49 sulfamethoxazole Allergy Intermediate Hives / Verified 06/30/22 19:49 Red Face levofloxacin Allergy Unknown muscle Verified 06/30/22 19:49 aches Sulfa (Sulfonamide Allergy Unknown Hive
[2022-06-30 17:36] LABS: Influenza A QL RT-PCR Negative (Negative); Influenza B QL RT-PCR Negative (Negative); SARS-CoV-2 RNA PCR Negative
[2022-06-30 18:20] LABS: Reflex Lactic Acid Yes or No Add Lactic
[2022-06-30 19:12] LABS: Troponin I 0.106 ng/mL (0.000-0.034)
--- NOTE | 2022-06-30 19:30 | ADMGEN ---
This patient, Myrna Rodriguez, was admitted to Medical Room 341-01. Patient/family oriented to hospital policies and general routines including ID bracelet, bed and alarms, visiting hours, pain management, procedures, bathroom and other care routines, personal items, smoking policy, room service/diet, and visiting hours. Information on how to activate the Rapid Response Team has been discussed. Patient/Family are encouraged to report perceived risks to care and to ask questions if they do not understand what they are told or what they should do.
[2022-06-30] MEDS: levETIRAcetam 500MG/NACL 100ML 500 MG/100 ML BAG 400 MG IVPB (22:28)
[2022-07-01] MEDS: DEXAMETHASONE SOD PHOS INJ 4 MG/ML VIAL IV PUSH ×4 (00:54→17:33)
[2022-07-01 05:58] VITALS: BP 97/46; PULSE 75; RESP 16; TEMP 36.1; O2SAT 97
[2022-07-01 07:42] VITALS: O2SAT 95
[2022-07-01] MEDS: levETIRAcetam 500MG/NACL 100ML 500 MG/100 ML BAG 400 MG IVPB ×2 (10:21→20:48)
--- NOTE | 2022-07-01 11:30 | PM.IMPN ---
Progress Note: A&P Assessment and Plan (1) Seizure: Code(s): R56.9 - Unspecified convulsions Status: Acute Assessment and Plan: Most likely due to metastatic breast cancer to left temporal lobe with surrounding vasogenic edema. Levetiracetam 1000 mg loaded in the ED. Continue levetiracetam 500 mg b.i.d.. Initiate seizure precautions. Patient wishing for medical treatment of seizures in the hospital before sent home on palliative care hospice. Neurology consulted for seizure management. (2) Vasogenic cerebral edema: Code(s): G93.6 - Cerebral edema Status: Acute Assessment and Plan: Patient and family members opted for palliative care and request [facility]. 07/01/22 hospice consult. Continue dexamethasone. (3) Lactic acidosis: Code(s): E87.20 - Acidosis, unspecified Status: Acute Assessment and Plan: Most likely due to seizure. No history to suggest underlying infection. No further workup to be pursued. (4) Elevated troponin: Code(s): R77.8 - Other specified abnormalities of plasma proteins Status: Acute Assessment and Plan: Patient is having no chest pain. EKG does show borderline ST T-wave abnormalities in all leads. No workup being pursued. Plan MEDICAL DECISION MAKING NARRATIVE History obtained from: Patient. History from independent sources: Patient's Roverto, and sister. New problems addressed: New onset seizure, cerebral edema. Chronic illnesses addressed: Metastatic breast cancer. Independent interpretation of studies: Labs and imaging personally reviewed. Agreed with radiologist assessment. Discussion of management with other providers: None. Comorbidities complicating care: None. Diagnostic tests considered but not ordered: None. Shared decision making: Labs, imaging, clinical presentation discussed with the patient and her and sister at bedside with her permission. To meet with [facility] tomorrow. Wishes to have seizures stabilized so she is not having seizures at home before being discharged into hospice care. Risk of complication: Hyperglycemia with steroids. Recurrent seizures and even without definitive treatment for vasogenic edema suspected to be related to metastatic breast cancer. Time Spent With Patient Time: Talked with patient's family for 30 minutes about palliative care Total encounter greater than 50 minutes Subjective Date/time seen: 07/01/22 11:30 Interval history: Discussed with patient's family today the meaning of palliative care. Patient's sister, [id number] and has been in the room at the time of interview. Patient okay with discussion in front of family. Patient feeling great today with no complaints. Patient denying fever, headache, dizziness, chest pain, shortness a breath, nausea and vomiting. Review of Systems Review of Systems: All systems reviewed & are unremarkable except as noted in HPI and below Exam Narrative: GENERAL: Comfortable, no acute distress HENMT: moist mucous membranes EYES: EOM intact b/l NECK: no lymphadenopathy, fixed position with neck and head pushing forward RESPIRATORY: clear to auscultation CARDIO: RRR GI: soft, nontender, bowel sounds present SKIN: no rashes EXTREMITIES: no edema, redness or tenderness Objective Data Vital Signs Vital Signs: Vital Signs - 24 hr 06/30/22 14:52 06/30/22 16:14 06/30/22 15:14 Temperature 97.5 F L Pulse Rate 130 H Respiratory Rate 18 Blood Pressure 133/38 L Pulse Oximetry 100 99 99 Oxygen Delivery Room Air Room Air Non-Rebreather Mask Oxygen Flow Rate 15 06/30/22 16:34 06/30/22 16:35 06/30/22 16:45 Temperature Pulse Rate 90 102 H 101 H Respiratory Rate 24 H 18 Blood Pressure Pulse Oximetry 98 98 Oxygen Delivery Oxygen Flow Rate 06/30/22 16:46 06/30/22 17:00 06/30/22 17:01 Temperature Pulse Rate 102 H 90 91 Respi
[2022-07-01 14:00] VITALS: BP 120/58; PULSE 94; RESP 18; TEMP 36.3; O2SAT 98
[2022-07-01 19:38] VITALS: BP 134/55; PULSE 81; RESP 18; TEMP 36.5; O2SAT 98
[2022-07-01 20:00] VITALS: PULSE 81; RESP 18; O2SAT 98
[2022-07-02] MEDS: DEXAMETHASONE SOD PHOS INJ 4 MG/ML VIAL IV PUSH ×5 (00:17→23:40)
[2022-07-02 06:00] VITALS: BP 122/65; PULSE 65; RESP 18; TEMP 36.4; O2SAT 97
[2022-07-02 06:14] LABS: Hematocrit 39.1 % (37.0-47.0); Hemoglobin 12.8 g/dL (12.0-15.0); Mean Corpuscular HGB Conc 32.7 g/dl (32-36); Mean Corpuscular Hemoglobin 31.4 pg (26-34); Mean Corpuscular Volume 96.1 fl (80-100); Mean Platelet Volume 10.3 fl (7.4-10.4); Platelet Count Result 253 k/mm3 (150-375); Red Blood Count 4.07 M/mm3 (4.2-5.4); Red Cell Distribution Width 12.3 % (11.5-14.5); White Blood Count 18.8 K/mm3 (4.5-10.0)
[2022-07-02 06:28] LABS: Alanine Aminotransferase 19 U/L (6-35); Albumin Level 3.7 g/dL (3.5-5.1); Alkaline Phosphatase 88 U/L (38-126); Anion Gap 5 mmol/L (8-16); Aspartate Amino Transferase 26 U/L (14-36); Bilirubin,Total 0.5 mg/dL (0.2-1.3); Blood Urea Nitrogen 11 mg/dL (7-17); Calcium 9.3 mg/dL (8.4-10.2); Carbon Dioxide 26 mmol/L (22-30); Chloride 105 mmol/L (98-107); Estimated CRCL calculation 82 ml/min; Estimated Glomerular Filt Rate > 60; Glucose 139 mg/dL (65-110); Sodium 136 mmol/L (137-145)
--- NOTE | 2022-07-02 08:55 | WPDNEURCNPN ---
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 CT head concerning for breast cancer metastasis to the brain. Would recommend MRI brain w/wo contrast and Neurosurgery consult, but patient has elected for palliative care/hospice. Agree with initiation of maintenance Keppra 500mg BID. Consult date: 07/02/22 Reason for consult: Seizure HPI: Myrna Rodriguez is a 71 year old female with a history of breast cancer who presented with first time seizure. Patient was diagnosed with invasive ductal breast cancer in November 2020 and discontinued treatment in Spring 2021 due to side-effects. She has been doing well until the past month she started having some word finding difficulties and problems with fluency of speech. Patient presented on day of admission after have a seizure that lasted for at least 20 minutes. She continued to seize while in the emergency room and had right gaze deviation with GTC movements of the extremities. She was given Ativan 2mg and loaded with Keppra 1g. Seizure was aborted and she was postical for an hour, but then returned to baseline. CT head showed moderate area of vasogenic edema in the L frontal lobe concerning for metastatic disease. This was reportedly discussed with patient and their family and they declined transfer to tertiary center and elected for palliate care instead. She has been started on dexamethasone and Keppra 500mg BID. She denies any active complaints currently. She has no prior history of seizures. 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 She has an oncologist but has not seen her consistent since discontinuing chemotherapy. She does not have interest in pursuing any invasive interventions related to her underlying cancer. Other than word finding difficulties, she denies any focal weakness, numbness, vision changes, headaches. Review of Systems Constitutional: Constitutional: Reports no additional constitutional complaints Eyes: Eyes: Reports no additional eye complaints ENT: Reports system reviewed and no additional complaints, except as documented Cardiovascular: Cardiovascular: Reports no additional cardiovascular complaints Respiratory: Respiratory: Reports no additional respiratory complaints Gastrointestinal: Gastrointestinal: Reports no additional gastrointestinal complaints Genitourinary: Genitourinary: Reports no additional female genitourinary complaints Musculoskeletal: Musculoskeletal: Reports neck pain Integumentary/Breasts: Skin/Breast: Reports system reviewed and no additional complaints, except as docu Neurologic: Reports as per HPI and Reports Abnormal speech present Psychiatric: Psychiatric: Reports no additional psychiatric complaints PMFSH Past Medical History Medical History Lumbar radiculopathy Family History Family History Mother Hypertension Family history of diabetes mellitus in first degree relative Family history of Alzheimer's disease Father Family history of lung cancer Patient's father is Sibling Family history of malignant neoplasm of breast in first degree relative Patient's sister is Social History Social History Smoking status: Never smoker Second hand tobacco smoke exposure: Yes (father was a smoker) Alcohol intake: never Substance use: never Lack of Transportation: No Lack of Food: Never True Current Fei
[2022-07-02] MEDS: levETIRAcetam 500MG/NACL 100ML 500 MG/100 ML BAG 400 MG IVPB ×2 (09:04→21:00)
[2022-07-02 12:37] LABS: Basophils Percent Auto 0.2 % (0.2-1.2); Hematocrit 40.1 % (37.0-47.0); Hemoglobin 13.2 g/dL (12.0-15.0); Immature Granulocyte Absolute 0.23 K/mm3 (0.00-0.031); Lymphocytes Absolute Auto 1.33 K/mm3 (0.9-3.2); Lymphocytes Percent Auto 5.8 % (18.3-44.2); Mean Corpuscular HGB Conc 32.9 g/dl (32-36); Mean Corpuscular Hemoglobin 31.7 pg (26-34); Mean Corpuscular Volume 96.4 fl (80-100); Mean Platelet Volume 9.8 fl (7.4-10.4); Monocytes Absolute Auto 1.3 K/mm3 (0.1-0.6); Monocytes Percent Auto 5.8 % (2.6-8.5); Neutrophils Absolute Auto 19.9 K/mm3 (1.3-6.7); Neutrophils Percent Auto 87.2 % (45.5-73.1); Platelet Count Result 275 k/mm3 (150-375); Red Blood Count 4.16 M/mm3 (4.2-5.4); Red Cell Distribution Width 12.5 % (11.5-14.5); White Blood Count 22.9 K/mm3 (4.5-10.0)
[2022-07-02 12:46] LABS: Lactic Acid Reflex 1.6 mmol/L (0.7-2.0)
[2022-07-02 14:00] VITALS: BP 133/61; PULSE 94; RESP 18; TEMP 36.1; O2SAT 98
--- NOTE | 2022-07-02 15:07 | PM.IMPN ---
Progress Note: A&P Assessment and Plan (1) Seizure: Code(s): R56.9 - Unspecified convulsions Status: Acute Assessment and Plan: Most likely due to metastatic breast cancer to left temporal lobe with surrounding vasogenic edema. Levetiracetam 1000 mg loaded in the ED. Continue levetiracetam 500 mg b.i.d.. Initiate seizure precautions. Patient wishing for medical treatment of seizures in the hospital before sent home on palliative care hospice. Neurology consulted for seizure management. Planning discharge tomorrow after hospice consult (2) Vasogenic cerebral edema: Code(s): G93.6 - Cerebral edema Status: Acute Assessment and Plan: Patient and family members opted for palliative care and request [facility]. Plan hospice consult. Continue dexamethasone. (3) Lactic acidosis: Code(s): E87.20 - Acidosis, unspecified Status: Acute Assessment and Plan: Most likely due to seizure. No history to suggest underlying infection. No further workup to be pursued. (4) Elevated troponin: Code(s): R77.8 - Other specified abnormalities of plasma proteins Status: Acute Assessment and Plan: Patient is having no chest pain. EKG does show borderline ST T-wave abnormalities in all leads. No workup being pursued. Plan MEDICAL DECISION MAKING NARRATIVE History obtained from: Patient. History from independent sources: New problems addressed: New onset seizure Chronic illnesses addressed: Metastatic breast cancer. Independent interpretation of studies: Labs and imaging personally reviewed. Agreed with radiologist assessment. Discussion of management with other providers: None. Comorbidities complicating care: None. Diagnostic tests considered but not ordered: None. Shared decision making: Risk of complication: Hyperglycemia with steroids. Recurrent seizures and even without definitive treatment for vasogenic edema suspected to be related to metastatic breast cancer. Time Spent With Patient Time: Greater than 35 minutes Subjective Date/time seen: 07/02/22 15:07 Interval history: Discussed with patient's family today the meaning of palliative care. Patient's family at bedside and has been in the room at the time of interview. Patient okay with discussion in front of family. Patient feeling great today with no complaints. Patient denying fever, headache, dizziness, chest pain, shortness a breath, nausea and vomiting. Review of Systems Review of Systems: All systems reviewed & are unremarkable except as noted in HPI and below Exam Narrative: GENERAL: Comfortable, no acute distress HENMT: moist mucous membranes EYES: EOM intact b/l NECK: no lymphadenopathy, fixed position with neck and head pushing forward RESPIRATORY: clear to auscultation CARDIO: RRR GI: soft, nontender, bowel sounds present SKIN: no rashes EXTREMITIES: no edema, redness or tenderness Objective Data Vital Signs Vital Signs: Vital Signs - 24 hr 07/01/22 19:38 07/01/22 20:00 07/02/22 06:00 Temperature 97.7 F 97.6 F Pulse Rate 81 81 65 Respiratory Rate 18 18 18 Blood Pressure 134/55 L 122/65 Pulse Oximetry 98 98 97 Oxygen Delivery Room Air 07/02/22 08:00 Temperature Pulse Rate Respiratory Rate Blood Pressure Pulse Oximetry Oxygen Delivery Room Air Intake/Output Intake/Output: Intake & Output 06/29/22 06/30/22 07/01/22 07/02/22 23:59 23:59 23:59 23:59 Intake Total 1200 1410 580 Output Total 2200 1400 Balance 1200 -790 -820 Meds/Results Medications: Active Medications Generic Name Dose Route Start Last Admin Trade Name Freq PRN Reason Stop Dose Admin Acetaminophen 650 mg 07/01/22 00:43 Acetaminophen 325 Mg Tablet PO Q6H PRN Mild Pain (1-3) or Fever Dexamethasone Sodium Phosphate 4 mg 07/01/22 00:45 07/02/22 12:00 Dexamethasone Sod Phos Inj 4 Mg/Ml Vial IV PUSH 4 mg
[2022-07-02 21:38] VITALS: BP 122/70; PULSE 67; RESP 16; TEMP 36.6; O2SAT 99
[2022-07-03] MEDS: DEXAMETHASONE SOD PHOS INJ 4 MG/ML VIAL IV PUSH ×2 (05:29→13:07)
[2022-07-03 05:56] LABS: Hemoglobin 14.2 g/dL (12.0-15.0); Mean Corpuscular HGB Conc 32.3 g/dl (32-36); Mean Corpuscular Hemoglobin 31.3 pg (26-34); Mean Corpuscular Volume 96.9 fl (80-100); Mean Platelet Volume 10.1 fl (7.4-10.4); Platelet Count Result 312 k/mm3 (150-375); Red Blood Count 4.54 M/mm3 (4.2-5.4); Red Cell Distribution Width 12.6 % (11.5-14.5); White Blood Count 20.4 K/mm3 (4.5-10.0)
[2022-07-03 06:00] VITALS: BP 118/67; PULSE 66; RESP 16; TEMP 36.7; O2SAT 99
[2022-07-03 06:17] LABS: Anion Gap 6 mmol/L (8-16); Blood Urea Nitrogen 16 mg/dL (7-17); Calcium 9.3 mg/dL (8.4-10.2); Carbon Dioxide 28 mmol/L (22-30); Chloride 106 mmol/L (98-107); Estimated CRCL calculation 82 ml/min; Estimated Glomerular Filt Rate > 60; Glucose 131 mg/dL (65-110); Potassium 3.9 mmol/L (3.4-5.0); Sodium 140 mmol/L (137-145)
[2022-07-03] MEDS: levETIRAcetam 500MG/NACL 100ML 500 MG/100 ML BAG 400 MG IVPB (09:09)
--- NOTE | 2022-07-03 12:35 | PC.NURSE ---
Per hospitalist, ok to remove polo. Pt was able to void.
--- NOTE | 2022-07-03 12:58 | PM.DS ---
DS: Admitting Diagnosis Discharge Date 07/03/22 Admitting Diagnosis Seizures, metastatic breast cancer DS: Discharge Diagnosis Discharge Diagnosis (1) Seizure: Code(s): R56.9 - Unspecified convulsions Status: Acute Assessment and Plan: Most likely due to metastatic breast cancer to left temporal lobe with surrounding vasogenic edema. Levetiracetam 1000 mg loaded in the ED.? Continue levetiracetam 500 mg b.i.d.. Initiate seizure precautions. Patient wishing for medical treatment of seizures in the hospital before sent home on palliative care hospice. Neurology consulted for seizure management. Discharge into palliative care (2) Vasogenic cerebral edema: Code(s): G93.6 - Cerebral edema Status: Acute Assessment and Plan: Patient and family members opted for palliative care and request [facility]. Plan hospice consult. Dexamethasone for 7 days (3) Lactic acidosis: Code(s): E87.20 - Acidosis, unspecified Status: Acute Assessment and Plan: Most likely due to seizure. No history to suggest underlying infection. No further workup to be pursued. (4) Elevated troponin: Code(s): R77.8 - Other specified abnormalities of plasma proteins Status: Acute Assessment and Plan: Patient is having no chest pain.? EKG does show borderline ST T-wave abnormalities in all leads. No workup being pursued. Plan MEDICAL DECISION MAKING NARRATIVE History obtained from: Patient. History from independent sources: Patient's Roverto and son Hua. External chart review: 2021 consult notes from outside facility reviewed. New problems addressed: New onset seizure, cerebral edema. Chronic illnesses addressed: Metastatic breast cancer. Independent interpretation of studies: Labs and imaging personally reviewed. Agreed with radiologist assessment. Discussion of management with other providers: None. Comorbidities complicating care: None. Diagnostic tests considered but not ordered: None. Shared decision making: Labs, imaging, clinical presentation discussed with the patient and her and son at bedside with her permission. She is being admitted for observation and has been started on steroids for the vasogenic edema and levetiracetam for seizure prevention. To meet with [facility] tomorrow with plans for discharge tomorrow. Risk of complication: Hyperglycemia with steroids. Recurrent seizures and even without definitive treatment for vasogenic edema suspected to be related to metastatic breast cancer. DS: Summary Hospital Course Reason for hospitalization: Seizures, metastatic breast cancer Hospital Course: 71-year-old female with history of metastatic breast cancer presented to the ED on 06/30/2022 due to seizure activity. Patient was given 2 mg Ativan with resolution of the seizure. Patient did experience postictal state however within an hour she became alert oriented x4. Brain CT showed evidence of moderate size region of vasogenic edema in the left frontal lobe concerning for metastatic disease. This was us with the family and family intends to discharge with [facility]. Patient was started on Keppra 500 mg b.i.d. along with dexamethasone 4 mg q.6 hours. Neurology consulted. Per patient's wishes she wants seizures to be under control so she does not scare her family when she is home. Patient being discharged into palliative care and going home. Patient did not experience any more seizure activity once admitted into the hospital. Patient is stable to be discharged. See above for more detailed information over patient's stay. Time Spent with Patient Time attestation: Total time spent providing and/or coordinating discharge services: Exam Narrative: GENERAL: Comfortable, no acute distress HENMT: moist mucous membranes EYES: EOM intact b/l NECK: no lymphadenopathy, fixed position with neck a
[2022-07-03 14:00] VITALS: BP 132/55; PULSE 71; RESP 16; TEMP 36.6; O2SAT 99
== END 2022-07-03 16:50 | disposition hospice, home (50) | DRG 81 ==
LOC: ANHED 15:05 → ANH3MED 18:19
PROVIDERS: Admitting Provider Internal Medicine; Emergency Provider Emergency Medicine; PCP Physician Assistant; Visit Provider Internal Medicine Critical Care Medicine
DX: G93.6 Cerebral edema (principal); C79.9 Secondary malignant neoplasm of unspecified site; E87.20 Acidosis, unspecified; D05.12 Intraductal carcinoma in situ of left breast; R56.9 Unspecified convulsions; R77.8 Other specified abnormalities of plasma proteins; Z20.822 Contact with and (suspected) exposure to COVID-19; Z79.82 Long term (current) use of aspirin; Z90.49 Acquired absence of other specified parts of digestive tract
CPT/HCPCS: 36415; 51702; 70450; 71045; 80048; 80053; 80307; 81001; 82948; 83605; 84484; 85025; 85027; 85610; 85730; 87636; 93005; 96361; 96365; 96375; 99285; G0378; J1100; J1953; J2060; J7030

== ENCOUNTER 2022-10-27 10:35 | Outpatient (CLI) | payer MEDICARE, SELFPAY ==
--- NOTE | ~2022-10-27 | XR_ITS ---
Left foot Technique: AP, oblique, and lateral views were obtained. Clinical History: Injury Findings: No acute fracture or dislocation is seen. Osseous alignment is anatomic. Joint spaces are p reserved without erosive or degenerative change. Soft tissues are unremarkable. Impression: Unremarkable left foot radiographs. Reviewed, dictated and finalized at location . Impression: Unremarkable left foot radiographs.
--- NOTE | ~2022-10-27 | XR_ITS ---
EXAMINATION: XR foot RT min 3V DATE: 10/27/2022 11:11 INDICATION: Right foot injury. TECHNIQUE: 4 views of right foot were obtained. COMPARISON: None. FINDINGS: There is mild hallux valgus. No fracture. There is mild osteoarthritis of first metatarsoph alangeal joint and some of the interphalangeal joints. There is an enthesophyte at plantar aspect of calcaneal tuberosity. IMPRESSION: 1. Mild polyarticular osteoarthritis. 2. Mild hallux valgus. Reviewed, dictated and finalized at location A.
== END 2022-10-27 10:36 | disposition home or self-care (01) ==
PROVIDERS: PCP Physician Assistant; Visit Provider Physician Assistant
DX: M79.672 Pain in left foot (principal); M19.071 Primary osteoarthritis, right ankle and foot; M20.11 Hallux valgus (acquired), right foot
CPT/HCPCS: 73630